=== PATIENT | male | born 1945 | race Caucasian/White ===

== ENCOUNTER → 2019-05-13 | Outpatient (CLI) | payer MEDICARE, OTHER ==
[~2019-05-13] MED LIST: ALDACTONE25 MG PO; ASPIRIN EC325 M1 PO; CARVEDILOL6.25 MG PO; CENTRUM SILVER1 EAC2 PO; LEVOTHYROXIN0.125 M1 PO; LISINOPRIL5 MG PO; PLAVIX 75 MG TA75 M1 PO; ZOCOR 20 MG TAB20 M1 PO
== END ==
LOC: M.ULTRA 09:39
DX: R22.2 Localized swelling, mass and lump, trunk (principal)

== ENCOUNTER → 2019-06-17 | Outpatient (CLI) | payer MEDICARE, OTHER | LOC: M.ULTRA 11:16 | DX: L98.9 Disorder of the skin and subcutaneous tissue, unspecified (principal) ==